=== PATIENT | male | born 2000 | race Caucasian/White ===

== ENCOUNTER 2021-10-22 13:59 | Emergency (ER) | payer OTHER, SELFPAY ==
--- NOTE | ~2021-10-22 | XR_ITS ---
XR chest 2V DATE: 10/22/2021 14:34 INDICATION: Chest pain TECHNIQUE: 2 views COMPARISON: None FINDINGS: Normal heart size. No hilar or mediastinal enlargement. No pulmonary infiltrate or consolid ation, pleural effusion or pulmonary vascular congestion or pneumothorax. Mild scoliosis; the skeletal structures are otherwise unremarkable. IMPRESSION: No active pulmonary disease Reviewed, dictated and finalized at location A. IMPRESSION: No active pulmonary disease
[2021-10-22 14:16] VITALS: BP 130/77; PULSE 112; RESP 16; TEMP 37.1; O2SAT 100
--- NOTE | 2021-10-22 14:18 | ECG_ITS ---
Measurements Intervals [place] Rate: 123 P: 73 SD: 146 QRS: 89 QRSD: 96 T: 40 QT: 337 QTc: 483 Interpretive Statements SINUS TACHYCARDIA INCOMPLETE RIGHT BUNDLE BRANCH BLOCK MINIMAL Q WAVES- INFERIOR LEADS BORDERLINE T WAVE ABNORMALITY- ANTEROLAT/INF LEADS ABNORMAL ECG Electronically Signed On 10-22-2021 19:43:52 CDT by Dg Weston D.O.
[2021-10-22 14:22] VITALS: BP 130/77; PULSE 112; RESP 16; TEMP 37.1; O2SAT 100
--- NOTE | 2021-10-22 14:28 | ED.CHESTPAIN ---
HPI - Chest Pain General Chief Complaint: Chest Pain Stated Complaint: CP Time Seen by Provider: 10/22/21 14:28 History of Present Illness HPI narrative: Dino Babin is a 21 yo male with PMH of asthma [facility] with right-sided chest pain that started last night; goes away for an hour and then comes back.. Presentation is anxious O2 sats 100%, states pain has not gone away since last night he goes to sleep for an hour but it wakes him up, mucous membranes appear dry, he appears very anxious Related Data Home Medications Medication Instructions Recorded Confirmed albuterol sulfate 90 mcg/actuation 90 mcg inhalation DIRECTED 10/22/21 10/22/21 aerosol inhaler Allergies Allergy/AdvReac Type Severity Reaction Status Date / Time No Known Allergies Allergy Unverified 04/20/13 12:46 Review of Systems Review of Systems: CONSTITUTIONAL: Denies fever, chills, sweats. EYES: Denies visual changes, redness, discharge. ENT: Denies rhinorrhea, congestion, has sore throat, otalgia. CARDIOVASCULAR: Has chest pain, palpitations, edema. Rates chest pain as 6 or 7 out of 10 RESPIRATORY: Denies dyspnea, wheezing, cough GASTROINTESTINAL: Denies abdominal pain, nausea, vomiting, diarrhea. GENITOURINARY: Denies dysuria, hematuria, abnormal discharge SKIN: Denies rash or itching. NEUROLOGIC: Denies numbness, or focal weakness. PSYCHIATRIC: Denies anxiety or depression. Chest pain right side since last night, comes and goes PMFSH Comments At time of signature, I agree with nursing past medical, surgical, social and family history. There is no relevant family history pertinent to the presenting complaint. Exam Narrative: GENERAL: This is a well-nourished, well-developed patient, in mild distress. HEAD: normocephalic, atraumatic. EYES: Pupils are dilated. Sclera clear/white. Vision is grossly intact. EARS: External ears normal. Hearing grossly intact. NOSE: External nose normal without nasal discharge, nares without redness, no rhinorrhea. THROAT: Mucous membranes dry, posterior pharynx hard to visualize as patient will not or cannot open mouth all the way up tongue is dry and cracked NECK: Neck supple, non-tender CARDIOVASCULAR: Tachycardic regular rate and rhythm without murmurs, gallops, or rubs. RESPIRATORY: Clear to auscultation. Breath sounds equal bilaterally. No wheezes, rales, or rhonchi. GASTROINTESTINAL: Abdomen soft, non-tender, SKIN: warm, intact with no suspicious lesions or rash, good texture and turgor. NEURO: awake, alert, and oriented to person, place and time. There were no obvious focal neurologic abnormalities. Steady gait EXTREMITIES: Normal range of motion. BACK: Nontender without deformity Course Course Emergency Course: Patient comes to [facility] with complaints of right-sided chest pain since last night EKG shows sinus tachycardia rate is 123, he has no QT prolongation, no deviation, change in t onV1 and lead 2. Normal respirations Chest x-ray done-no active pulmonary disease, normal heart size no hilar or mediastinal enlargement, no pulmonary infiltrate or consolidation pleural effusion or vascular congestion Strep test is negative Given Pepcid p.o.-on recheck after 1 hour patient states his pain is now down to 1-1 out of 10 and feels much better no longer short of breath and his pulse rate is 108 Started on famotidine 20 mg 1 twice daily x2 weeks and Mylanta Follow-up with one of the doctors on the referral sheet Level of Care: Express Care Visit Vital Signs Vital signs: Vital Signs Temperature 98.7 F 10/22/21 14:16 Pulse Rate 112 H 10/22/21 14:16 Respiratory Rate 16 10/22/21 14:16 Blood Pressure 130/77 10/22/21 14:16 Pulse Oximetry 100 10/22/21 14:16 Oxygen Delivery Room Air 10/22/21 14:16 Temperature 98.7 F 10/22/21 14:22 Pulse Rate 109 H 10/22/21 15:27 Respiratory Rate 18 10/22/21 15:27 Blood Pressure 130/77 10/22/21 14:22 Pulse Oximetry
[2021-10-22] MEDS: FAMOTIDINE 20 MG TABLET PO (14:39)
--- NOTE | 2021-10-22 15:00 | PC.NURSE ---
pt states pepcid has decreased chest pain from 7/10 to 5/10 and swallowing without difficulty or pain. Either to take breath per pt.
[2021-10-22] MEDS: LIDOCAINE HCL 2% VISC SOLN 15 ML UDC PO (15:08)
[2021-10-22] MEDS: MAG HYDROX/AL HYDROX/SIMETH 30 ML UDC PO (15:09)
[2021-10-22 15:27] VITALS: PULSE 109; RESP 18; O2SAT 100
== END 2021-10-22 15:47 | disposition home or self-care (01) ==
PROVIDERS: Emergency Provider Nurse Practitioner
DX: K21.9 Gastro-esophageal reflux disease without esophagitis (principal); I45.10 Unspecified right bundle-branch block; J45.909 Unspecified asthma, uncomplicated
CPT/HCPCS: 71046; 87081; 87880; 93005; 99213; A9270; G0463

== ENCOUNTER 2021-12-19 15:00 | Emergency (ER) | payer OTHER, SELFPAY ==
--- NOTE | ~2021-12-19 | US_ITS ---
EXAMINATION: US scrotum doppler DATE: 12/19/2021 15:47 INDICATION: Testicular pain TECHNIQUE: Testicular sonogram utilizing grayscale and Doppler COMPARISON: None. FINDINGS: The right testis measures 4.2 x 1.9 x 2.4 cm. The left testis measures 4.1 x 1.7 x 2.4 cm. There is normal vascular flow to both testes. The right epididymis is normal with normal vascular ob w. The left epididymis is normal with normal vascular flow. There is no varicocele or hydrocele. IMPRESSION: 1. No sonographic correlate for the patient's symptoms. Reviewed, dictated and finalized at location B.
[2021-12-19 15:01] VITALS: BP 149/92; PULSE 89; RESP 20; TEMP 37.1; O2SAT 100
[2021-12-19 16:02] LABS: Appearance Urine Clear (Clear); Bilirubin Urine 1+ (Negative); Blood Urine Negative (Negative); Color Urine Yellow (Yellow); Glucose Urine UA Negative (Negative); Ketones Urine 2+ mg/dL (Negative); Leukocyte Esterase Ur Negative LEU/UL (Negative); Nitrate Urine Negative (Negative); Protein Urine 2+ mg/dL (Negative)
[2021-12-19 16:15] LABS: Mucus Urine Rare /lpf; RBC Urine 0-2 /hpf (0-2); Squamous Epithelial Cell Urine Rare /hpf (Few); WBC Urine 0-3 /hpf
--- NOTE | 2021-12-19 16:29 | ED.MALEGU ---
HPI - Male Genitourinary General Chief complaint: Urogenital-Male Stated complaint: testicular pain Time Seen by Provider: 12/19/21 15:08 History of Present Illness HPI Narrative: 21-year-old male presents to the emergency room for evaluation of right testicular pain. Patient states the pain has been present for 3 days. Denies any injury or trauma. Denies any dysuria. Patient states he was seen at urgent care yesterday and was encouraged to come to the emergency room for further evaluation. Patient denies taking any medications to alleviate his symptoms. Related Data Home Medications Medication Instructions Recorded Confirmed albuterol sulfate 90 mcg/actuation 90 mcg inhalation DIRECTED 10/22/21 10/22/21 aerosol inhaler Allergies Allergy/AdvReac Type Severity Reaction Status Date / Time No Known Allergies Allergy Verified 12/19/21 16:09 Review of Systems Review of Systems: CONSTITUTIONAL: Denies fever, chills, or sweats. EYES: Denies visual changes, redness, or discharge. ENT: Denies rhinorrhea, congestion, sore throat, or otalgia. CARDIOVASCULAR: Denies chest pain, palpitations, or edema. RESPIRATORY: Denies cough or dyspnea. GASTROINTESTINAL: Denies abdominal pain, nausea, vomiting, or diarrhea. GENITOURINARY: Reports right testicular pain SKIN: Denies rash or itching. MUSCULOSKELETAL: Denies back pain, joint pain, or myalgia. NEUROLOGIC: Denies headache, numbness, dizziness, or weakness. PSYCHIATRIC: Denies anxiety or depression. Exam Narrative: GENERAL: Well-appearing, well-nourished, no physical limitations, and in no acute distress. HEAD: Normocephalic, atraumatic. EYES: Conjunctivae normal, PERRLA and EOMI. CHEST: Clear to auscultation. No respiratory distress. No wheezes rales or rhonchi. No tenderness. HEART: Regular rate and rhythm. No murmur heard. Normal peripheral pulses. ABDOMEN: Soft, nontender, nondistended, normal active bowel sounds. : Normal external male. Negative Prehn's sign. No masses lesions noted. Cremasteric reflex present bilaterally BACK: No CVA tenderness; SKIN: Warm, dry, no rash. No noted wounds NEURO: No focal deficits. Alert and oriented x3. MAEW. CN's II-XI intact bilaterally, normal gait PSYCH: Cooperative. Normal mood and affect. Course Vital Signs Vital signs: Vital Signs Temperature 37.1 C 12/19/21 15:01 Pulse Rate 89 12/19/21 15:01 Respiratory Rate 20 12/19/21 15:01 Blood Pressure 149/92 H 12/19/21 15:01 Pulse Oximetry 100 12/19/21 15:01 Temperature 37.1 C 12/19/21 15:01 Pulse Rate 89 12/19/21 15:01 Respiratory Rate 20 12/19/21 15:01 Blood Pressure 149/92 H 12/19/21 15:01 Pulse Oximetry 100 12/19/21 15:01 MDM - Male Genitourinary Lab Data Labs: Lab Results 12/19/21 Range/Units 15:46 Urine Color Yellow (Yellow) Urine Appearance Clear (Clear) Urine pH 7.0 (5.0-9.0) Ur Specific [place] 1.020 (1.001-1.035) Urine Protein 2+ H (Negative) mg/dL Urine Glucose (UA) Negative (Negative) mg/dL Urine Ketones 2+ H (Negative) mg/dL Ur Blood (Man) Negative (Negative) Urine Nitrate Negative (Negative) Urine Bilirubin 1+ H (Negative) Urine Urobilinogen 1.0 (<2.0) mg/dL Leukocyte Esterase Rfl Negative (Negative) LUCINA/UL Discharge Plan Discharge Clinical Impression: Pain in right testicle Patient Disposition: Home, Self-Care Condition: Stable Instructions: Antibiotic Form, Testicle Pain (ED) Additional Instructions: Begin taking the naproxen tomorrow. If you continue to experience symptoms next week follow-up with urology. Prescriptions: New naproxen 500 mg tablet 500 mg PO BID Qty: 14 0RF No Action albuterol sulfate 90 mcg/actuation Hfa Aerosol Inhaler 90 mcg INHALATION DIRECTED famotidine [Pepcid] 20 mg tablet 20 mg PO BID Qty: 60 0RF simethicone [Mylanta Gas] 125 mg tablet,chewable 125 mg PO TID PRN (Reason: abdominal
[2021-12-19 16:31] LABS: Add Urine Microscopic? YES
== END 2021-12-19 16:46 | disposition home or self-care (01) ==
PROVIDERS: Emergency Provider Nurse Practitioner Family
DX: N50.811 Right testicular pain (principal); Z79.51 Long term (current) use of inhaled steroids
CPT/HCPCS: 76870; 81001; 93976; 99284